=== PATIENT | female | born 1995 | race Caucasian/White ===

== ENCOUNTER 2023-07-18 08:58 | Outpatient (CLI) | payer MEDICAID | END 2023-07-18 23:59 | disposition home or self-care (01) | LOC: RAD 08:58 | PROVIDERS: ATTEND Neuromusculoskeletal Medicine & OMM | DX: R53.82 Chronic fatigue, unspecified (principal) | CPT/HCPCS: 95816 ==

== ENCOUNTER 2023-09-09 13:40 | Outpatient (CLI) | payer MEDICAID | END 2023-09-09 23:59 | disposition home or self-care (01) | LOC: MRI 13:40 | PROVIDERS: ATTEND Neuromusculoskeletal Medicine & OMM | DX: I67.82 Cerebral ischemia (principal); G43.019 Migraine without aura, intractable, without status migrainosus | CPT/HCPCS: 70551 ==